=== PATIENT | female | born 1980 | race Two or more races ===

== ENCOUNTER 2025-02-01 14:30 | Emergency (ER) | payer OTHER ==
[~2025-02-01] VITALS: Ht 160 cm; Wt 72.6 kg
[2025-02-01] MEDS ORDERED: LEVOTHYROXINE25 MCG (16:07)
[2025-02-01] MEDS ORDERED: LIDOCAINE HCL 120 ML ML MM ONE (18:00)
[2025-02-01] MEDS ORDERED: GUAIFENESIN/DEXTROMETHORPHAN 100MG/10ML BLIST.PACK PO ONE (18:00)
[2025-02-01] MEDS ORDERED: MAG HYDROX/ALUMINUM HYD/SIMETH 30 ML BLIST.PACK PO ONE (18:00)
[2025-02-01 18:16] LABS: BASO % 0.8 % (0.1-1.2); EOS # 0.20 (0.04-0.54); EOS % 2.2 % (0.7-7.0); LYMPH # 2.42 (1.18-3.74); LYMPH % 27.2 % (19.3-53.1); MEAN PLATELET VOLUME 8.90 fl (9.4-12.4); MONO # 0.71 (0.24-0.82); MONO % 8.0 % (4.7-12.5); NEUT # 5.45 (1.56-6.13); NEUT % 61.1 % (34.0-71.1); RED CELL DISTRIBUTION WIDTH 13.3 % (11.6-14.4)
[2025-02-01 18:41] LABS: COVID-19 AG NEGATIVE (NEGATIVE)
[2025-02-01] MEDS ORDERED: CHLORASEPTIC177 M2 BC (19:10)
== END 2025-02-01 19:50 | disposition home or self-care (01) ==
LOC: ER 14:30
PROVIDERS: Preventive Medicine Public Health & General Preventive Medicine
DX: J37.0 Chronic laryngitis (principal); J00 Acute nasopharyngitis [common cold]; Z20.822 Contact with and (suspected) exposure to COVID-19; Z88.0 Allergy status to penicillin